=== PATIENT | male | born 2000 | race Caucasian/White ===

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

== ENCOUNTER 2019-04-04 03:17 | Emergency (ER) | payer SELFPAY ==
[2019-04-04 03:23] VITALS: BP 149/87
--- NOTE | 2019-04-04 03:56 | ER Document Report ---
HPI - HPI Time Seen by Provider: 04/04/19 03:44 Pain Level: 3 Context: Patient is a 18-year-old male that comes to the emergency department for chief complaint of left foot pain. He states 2 days ago he was running and he felt a sharp pain in the arch of his foot near the inner front over the plantar aspect of the foot. He states since then it hurts whenever he places his foot flat on the floor. He denies ankle pain, leg pain, or any other injuries. He denies an y other complaints. Past medical history of hypertension. Past Medical History - General Information source: Patient - Social History Smoking Status: Current Every Day Smoker Chew tobacco use (# tins/day): No Frequency of alcohol use: None Drug Abuse: None Lives with: Family Family History: Reviewed & Not Pertinent Patient has suicidal ideation: No Patient has homicidal ideation: No - Past Medical History Cardiac Medical History: Reports: Hx Hypertension - NO MEDS/SEES IT CONSULTING DIRECTOR Q6MO Denies: Hx Heart Attack Pulmonary Medical History: Denies: Hx Asthma Neurological Medical History: Reports: Hx Migraine. Denies: Hx Cerebrovascular Accident, Hx Seizures GI Medical History: Denies: Hx Hepatitis, Hx Hiatal Hernia, Hx Ulcer Infectious Medical History: Denies: Hx Hepatitis Past Surgical History: Denies: Hx Open Heart Surgery, Hx Pacemaker - Immunizations Immunizations up to date: Yes Hx Diphtheria, Pertussis, Tetanus Vaccination: Yes Vertical Provider Document - CONSTITUTIONAL General Appearance: WD/WN, No Apparent Distress, Obese - INFECTION CONTROL TRAVEL OUTSIDE OF THE [place] IN LAST 30 DAYS: No - HEENT HEENT: Atraumatic, Normal ENT Exam, Normocephalic - NECK Neck: Normal Inspection - RESPIRATORY Respiratory: Breath Sounds Normal, No Respiratory Distress - CARDIOVASCULAR Cardiovascular: Regular Rate, Regular Rhythm - GI/ABDOMEN Gastrointestinal: Abdomen Soft, Abdomen Non-Tender - BACK Back: Normal Inspection - MUSCULOSKELETAL/EXTREMETIES Musculoskeletal/Extremeties: MAEW, FROM, Tender - There is very mild tenderness over the plantar aspect and the plantar fascial distribution of the left foot, there is no swelling, erythema, wound, or other concerning finding. Normal capillary refill and sensation, normal foot, ankle, leg exam otherwise. - NEURO Level of Consciousness: Awake, Alert, Appropriate Motor/Sensory: No Motor Deficit, No Sensory Deficit - DERM Integumentary: Warm, Dry, No Rash Course - Re-evaluation Re-evalutation: Evaluation is consistent with plantar fasciitis from the injury with no signs of infection or concerning injuries otherwise. X-rays negative. Discussed details with patient at length. Patient states understanding and agreement. - Vital Signs Vital signs: Temp Pulse Resp BP Pulse Ox 98.2 F 89 20 149/87 H 97 04/04/19 03:22 04/04/19 03:22 04/04/19 03:22 04/04/19 03:22 04/04/19 03:22 - Diagnostic Test Radiology reviewed: Image reviewed, Reports reviewed Discharge - Discharge Clinical Impression: Injury of left foot Qualifiers: Encounter type: initial encounter Qualified Code(s): S99.922A - Unspecified injury of left foot, initial encounter Condition: Stable Disposition: HOME, SELF-CARE Additional Instructions: The x-ray is normal. Your evaluation is consistent with an injury that has caused inflammation of the plantar fascia. Take the anti-inflammatory as prescribed, see additional instructions below. Wear supportive shoes. Follow- up with orthopedics if needed. Return for any concerning symptoms. Plantar Fasciitis Plantar fasciitis is an inflammation of a ligament on the underside of the foot. It can be caused by injury, overuse such as running, or poorly fitting shoes. Plantar fasciitis is treated with stretching exercises and antiinflammatory medicine. More severe cases may require injection of cortisone. It may take several weeks to get better. Call or return if there is redness, increasing pain, swelling, fever, or any other new symptoms. Prescriptions: Naproxen 500 mg PO BID PRN #20 tablet PRN Reason: Forms: Special Work Note, Return to Work, Elevated Blood Pressure Referrals: PAT NOE MD [ACTIVE STAFF] - Follow up in 1 week
--- NOTE | 2019-04-04 04:40 | RADIOLOGY REPORT (SQ) ---
Left foot three view on 04/04/2019 at 4:07 AM CLINICAL INDICATION: Sharp foot pain when running COMPARISON: 03/02/2011 FINDINGS: There are no fractures. Visualized joints are well aligned. No bony abnormality is noted. IMPRESSION: No acute abnormality.
== END 2019-04-04 05:10 | disposition home or self-care (01) ==
LOC: ER 03:17
DX: S99.922A Unspecified injury of left foot, initial encounter (principal); M79.672 Pain in left foot; X58.XXXA Exposure to other specified factors, initial encounter; Y93.02 Activity, running; F17.200 Nicotine dependence, unspecified, uncomplicated; I10 Essential (primary) hypertension
CPT/HCPCS: 99283